=== PATIENT | female | born 1940 | race Hispanic/Latino ===

== ENCOUNTER 2022-04-26 11:18 | Outpatient (CLI) | payer MEDICARE | END 2022-04-26 11:19 | disposition home or self-care (01) | LOC: BICRAD 11:18 | PROVIDERS: ATTEND Family Medicine | DX: R06.02 Shortness of breath (principal); R91.8 Other nonspecific abnormal finding of lung field; J84.10 Pulmonary fibrosis, unspecified; J98.4 Other disorders of lung | CPT/HCPCS: 71046 ==